=== PATIENT | female | born 1960 | race African-American/Black ===

== ENCOUNTER 2017-06-11 18:12 | Emergency (ER) | payer OTHER ==
[2017-06-11 20:59] LABS: #Basophils 0.1 thou/uL (0.0-0.2); #Eosinphils 0.1 thou/uL (0.0-0.7); #Lymphocytes 3.8 thou/uL (1.20-3.40); #Neutrophils 6.1 thou/uL (1.40-6.50); %Basophils 0.5 % (0.0-1.0); %Eosinophils 1.1 % (0.0-10.0); %Lymphocytes 34.4 % (21.0-51.0); %Monocytes 9.1 % (0.0-10.0); Hematocrit 37.4 % (36.0-47.0); White Blood Cell (WBC) Count 11.1 thou/uL (4.8-10.8)
[2017-06-11 21:08] LABS: PTT 32.2 SEC (22.9-36.1); Prothrombin Time 14.3 SEC (12.0-14.7)
[2017-06-11 21:23] LABS: ALT (SGPT) 10 U/L (8-55); AST (SGOT) 15 U/L (5-34); Alkaline Phosphatase 94 U/L (40-150); Anion Gap 12 mmol/L (10-20); BUN (Urea Nitrogen) 12 mg/dL (9.8-20.1); Bilirubin, Total 0.3 mg/dL (0.2-1.2); CK (CPK) 170 U/L (29-168); Calc. Creatinine Clearance 0 mL/min (70-130); Calcium 9.7 mg/dL (7.8-10.44); Carbon Dioxide 29 mmol/L (22-29); Chloride 102 mmol/L (98-107); Estimated GFR-MDRD 78; Globulin 4.6 g/dL (2.4-3.5); Lipase 12 U/L (8-78); Protein, Total 8.6 g/dL (6.0-8.3)
[2017-06-11 21:27] LABS: Troponin I Less than 0.010 ng/mL (< 0.028)
== END 2017-06-11 21:55 | disposition home or self-care (01) ==
LOC: ERS 18:12
DX: M62.830 Muscle spasm of back (principal); M25.511 Pain in right shoulder; M06.9 Rheumatoid arthritis, unspecified; I10 Essential (primary) hypertension; Z79.891 Long term (current) use of opiate analgesic; Z79.899 Other long term (current) drug therapy; Z79.1 Long term (current) use of non-steroidal anti-inflammatories (NSAID)
CPT/HCPCS: 36415; 80053; 82553; 83690; 84484; 85025; 85610; 85730; 93005

== ENCOUNTER 2021-12-03 04:40 | Emergency (ER) | payer MEDICARE | END 2021-12-03 07:04 | disposition home or self-care (01) | LOC: ERS 04:40 | DX: M79.605 Pain in left leg (principal); I10 Essential (primary) hypertension; M06.9 Rheumatoid arthritis, unspecified; M19.90 Unspecified osteoarthritis, unspecified site; Z79.899 Other long term (current) drug therapy; Z79.52 Long term (current) use of systemic steroids ==